=== PATIENT | female | born 1960 | race American Indian/Alaskan Native ===

== ENCOUNTER 2018-02-02 18:53 | Emergency (ER) | payer OTHER ==
--- NOTE | 2018-02-02 20:34 | XRay Report ---
FINAL REPORT PROCEDURE: XR CHEST ROUTINE 2V TECHNIQUE: PA and lateral chest radiographs were obtained. CPT 36905 HISTORY: Shortness of breath COMPARISON: No prior studies are available for comparison. FINDINGS: Heart: Normal. Mediastinum/Vessels: Normal. Lungs/Pleural space: Normal. Bony thorax: No acute osseous abnormality. Other: IMPRESSION: Negative examination.
[2018-02-02 20:37] LABS: Basophils % (Auto) 0.9 % (0.0-1.8); Eosinophils # (Auto) 0.1 K/mm3 (0.0-0.4); Eosinophils % (Auto) 1.8 % (0.0-4.3); Hematocrit 40.8 % (30.3-42.9); Hemoglobin 13.1 gm/dl (10.1-14.3); Lymphocytes # (Auto) 1.3 K/mm3 (1.2-5.4); Lymphocytes % (Auto) 26.2 % (13.4-35.0); Mean Corpuscular HGB Conc 32 % (30-34); Mean Corpuscular Hemoglobin 30 pg (28-32); Mean Corpuscular Volume 94 fl (79-97); Monocytes # (Auto) 0.5 K/mm3 (0.0-0.8); Monocytes % (Auto) 9.2 % (0.0-7.3); Platelet Count 185 K/mm3 (140-440); Red Blood Count 4.33 M/mm3 (3.65-5.03); Red Cell Distribution Width 13.9 % (13.2-15.2)
[2018-02-02 20:48] LABS: BUN/Creatinine Ratio 13; Blood Urea Nitrogen 8 mg/dL (7-17); Hemolysis Index 10
[2018-02-02 21:04] LABS: Bilirubin,Urine NEG (Negative); Blood,Urine NEG (Negative); Color,Urine Straw (Yellow); Protein,Urine <15 mg/dL mg/dL (Negative); Urobilinogen,Urine < 2.0 mg/dL (<2.0); WBC,Urine < 1.0 /HPF (0.0-6.0)
[2018-02-03 02:35] VITALS: BP 134/70
--- NOTE | 2018-02-03 04:24 | Emergency Department Report ---
ED Dizziness HPI - General Chief Complaint: Dizziness Stated Complaint: DIZZINESS, FATIGUE,POSSIBLE HIGH BP Time Seen by Provider: 02/03/18 04:23 Source: patient Mode of arrival: Ambulatory Limitations: No Limitations - History of Present Illness Initial Comments: Patient complains of persistent bout of dizziness and mild lightheadedness earlier in the evening, contact her daughter, who was a nurse, who felt that she may have been with low blood pressure and about to pass out. She has a history of elevated blood pressure, takes an unspecified blood pressure medication daily, but has not taken it just recently. She has been suffering from symptoms of allergies, with some congestion, and intermittent cough, but she has not been particularly overwhelmed by this. She has not had any symptoms of acute illness either. She's had no focal weakness, but comes in for further evaluation. MD Complaint: dizziness -: Gradual, This evening Timing: unsure Description: sense of movement, off-balance History of Same: No (prior episodes of vertigo, not quite similar) History of Trauma: No Severity: mild Improves With: rest Worsens With: movement, position Associated Symptoms: denies other symptoms. denies: chest pain, confusion, diaphoresis, fever/chills, shortness of breath - Related Data Allergies Allergy/AdvReac Type Severity Reaction Status Date / Time codeine Allergy Hives Verified 02/02/18 19:26 morphine Allergy Hives Verified 02/02/18 19:26 ED Review of Systems ROS: Stated complaint: DIZZINESS, FATIGUE,POSSIBLE HIGH BP Other details as noted in HPI Constitutional: denies: chills, fever Eyes: vision change (intermittent bouts of flashing on the left side, lasted minutes, resolved). denies: eye pain, eye discharge ENT: congestion. denies: ear pain, throat pain Respiratory: see HPI. denies: cough, shortness of breath, wheezing Cardiovascular: denies: chest pain, palpitations Endocrine: no symptoms reported. denies: flushing, intolerance to cold, increased thirst, increased urine Gastrointestinal: denies: abdominal pain, nausea, diarrhea Genitourinary: denies: urgency, dysuria, discharge Musculoskeletal: denies: back pain, joint swelling, arthralgia Skin: denies: rash, lesions Neurological: confusion (questionable, felt difficulty concentrating), vertigo ( questionable). denies: headache, weakness, paresthesias, abnormal gait Psychiatric: denies: anxiety, depression Hematological/Lymphatic: denies: easy bleeding, easy bruising ED Past Medical Hx - Past Medical History Previous Medical History?: Yes Hx Hypertension: Yes - Surgical History Past Surgical History?: Yes Additional Surgical History: Hysterectomy, tubaligation - Social History Smoking Status: Never Smoker Substance Use Type: None ED Physical Exam - General Limitations: No Limitations General appearance: alert, in no apparent distress - Head Head exam: Present: atraumatic, normocephalic - Eye Eye exam: Present: normal appearance, PERRL, other (normal funduscopic examination, no evidence of retinal detachment) - ENT ENT exam: Present: normal exam, mucous membranes moist - Neck Neck exam: Present: normal inspection. Absent: tenderness - Respiratory Respiratory exam: Present: normal lung sounds bilaterally. Absent: respiratory distress - Cardiovascular Cardiovascular Exam: Present: regular rate, normal rhythm. Absent: systolic murmur, diastolic murmur, rubs, gallop - GI/Abdominal GI/Abdominal exam: Present: soft, normal bowel sounds - Rectal Rectal exam: Present: deferred - Extremities Exam Extremities exam: Present: normal inspection - Back Exam Back exam: Present: normal inspection - Neurological Exam Neurological exam: Present: alert, oriented X3 - Psychiatric Psychiatric exam: Present: normal affect, normal mood - Skin Skin exam: Present: warm, dry, intact, normal color. Absent: rash ED Course Vital Signs 02/02/18 02/02/18 19:26 23:25 Temperature 97.8 F Pulse Rate 65 54 L Respiratory 16 16 Rate Blood Pressure 161/79 Blood Pressure 134/70 [Left] O2 Sat by Pulse 100 98 Oximetry ED Medical Decision Making - Lab Data Result diagrams: 02/02/18 20:16 02/02/18 20:16 - EKG Data -: EKG Interpreted by [facility] EKG shows normal: sinus rhythm, QRS complexes (normal) Rate: normal (normal EKG) - EKG Data When compared to previous EKG there are: previous EKG unavailable Interpretation: normal EKG - Radiology Data Radiology results: report reviewed Normal chest x-ray - Medical Decision Making Patient is clinically stable, blood pressure is borderline elevated, but she is clearly not hypotensive, and has negative examination, with no neurologic findings, no gross instability, and no repeat ability of symptoms on standing, or movement. Patient likely had a transient episode, could've been borderline hypotension, but this is clearly resolved by time of examination with no recurrences during her period of waiting in the emergency department. She is stable for discharge home. - Differential Diagnosis hypotension, somatic symptoms, neurologic symptoms Critical care attestation.: If time is entered above; I have spent that time in minutes in the direct care of this critically ill patient, excluding procedure time. ED Disposition Clinical Impression: Dizziness of unknown cause Disposition: DC-01 TO HOME OR SELFCARE Is pt being admited?: No Does the pt Need Aspirin: No Condition: Good Instructions: Lightheadedness (ED) Additional Instructions: Symptoms of dizziness and lightheadedness are, and in most people, and are cured with sitting down resting, or even lying flat and waiting for symptoms to resolve. No additional care is needed now, laboratory and x-ray examination and EKGs are normal, but he may follow with your physician if he notices these are recurrent episodes. Referrals: [facility] [Other] - 3-5 Days Time of Disposition: 04:53
== END 2018-02-03 05:56 | disposition home or self-care (01) ==
LOC: ED 18:53
DX: R42 Dizziness and giddiness (principal); I10 Essential (primary) hypertension
CPT/HCPCS: 36415; 71046; 80048; 81001; 85025; 93005; 93010